=== PATIENT | male | born 1975 | race Caucasian/White ===

== ENCOUNTER 2021-10-14 23:53 | Emergency (ER) | payer OTHER ==
[~2021-10-14] VITALS: Ht 172.7 cm; Wt 100.0 kg
[2021-10-15 01:20] VITALS: BP 135/82
== END 2021-10-15 10:31 | disposition home or self-care (01) ==
LOC: ER 23:53 → EDBD 23:53 → ER 10-15 10:31
DX: G92.9 Unspecified toxic encephalopathy (principal); F10.129 Alcohol abuse with intoxication, unspecified; Y90.9 Presence of alcohol in blood, level not specified; G82.20 Paraplegia, unspecified; Z93.3 Colostomy status
CPT/HCPCS: 99283; Z7610

== ENCOUNTER 2022-01-03 18:39 | Emergency (ER) | payer MEDICAID ==
[~2022-01-03] VITALS: Ht 167.6 cm; Wt 77.0 kg
[2022-01-03] MEDS ORDERED: MAGNESIUM/ALUMINUM HYDROXIDE/SIMETHICONE 30ML UDC PO STA (18:52)
[2022-01-03] MEDS ORDERED: ONDANSETRON HCL 4MG/2ML INJ IV STA (18:52)
[2022-01-03] MEDS ORDERED: VISCOUS LIDOCAINE 2% 15 ML UDC PO STA (18:52)
[2022-01-03] MEDS ORDERED: SODIUM CHLORIDE 0.9% 1,000 ML IV ONE (19:00)
[2022-01-03] MEDS ORDERED: PANTOPRAZOLE SODIUM 40 MG/VIAL IV ONE (19:00)
[2022-01-03 19:26] LABS: BASOPHILS % 0.2 % (0.0-2.0); EOSINOPHILS % 0.3 % (0.0-5.0); HEMATOCRIT. 42.2 % (42.0-52.0); HEMOGLOBIN. 13.7 g/dL (14.0-18.0); LYMPHOCYTES % 9.5 % (20.0-50.0); MEAN CORPUSCULAR HEMOGLOBIN 28.5 pg (28.0-32.0); MEAN CORPUSCULAR VOLUME 87.6 fL (80.0-94.0); MEAN PLATELET VOLUME 8.9 fl (7.4-10.4); PLATELET 185 x1000/uL (130-400); RED BLOOD CELL COUNT 4.81 mill/uL (4.7-6.1); RED CELL DISTRIBUTION WIDTH 15.3 % (11.6-14.6)
[2022-01-03 19:34] LABS: CHLORIDE 101 mEq/L (98-107)
[2022-01-03 19:40] LABS: ETHANOL BLOOD 146 mg/dL
[2022-01-03] MEDS ORDERED: ONDANSETRON HCL 4MG/2ML INJ IV NR (21:00)
[2022-01-03] MEDS ORDERED: MAGNESIUM/ALUMINUM HYDROXIDE/SIMETHICONE 30ML UDC PO NR (21:00)
[2022-01-03] MEDS ORDERED: PANTOPRAZOLE SODIUM 40 MG/VIAL IV NR (21:00)
[2022-01-03] MEDS ORDERED: VISCOUS LIDOCAINE 2% 15 ML UDC PO NR (21:00)
[2022-01-03] MEDS ORDERED: MORPHINE SULFATE 4 MG/ML CPJ (NOT FOR IM USE) IV ONE ×2 (22:00→23:00)
[2022-01-03] MEDS ORDERED: CEFTRIAXONE 1 G PREMIX 50 ML IV NR (23:00)
[2022-01-04] VITALS: BP 134/89
[2022-01-04] MEDS ORDERED: MORPHINE SULFATE 2 MG/ML CPJ (NOT FOR IM USE) IV ONE (00:39)
[2022-01-04] MEDS ORDERED: IOHEXOL-350 100 ML BOTTLE ONE (01:04)
== END 2022-01-04 02:16 | disposition short-term general hospital (02) ==
LOC: ER 18:39
DX: R07.89 Other chest pain (principal); K20.90 Esophagitis, unspecified without bleeding; K80.20 Calculus of gallbladder without cholecystitis without obstruction; R10.13 Epigastric pain; E87.1 Hypo-osmolality and hyponatremia; F10.229 Alcohol dependence with intoxication, unspecified; E11.9 Type 2 diabetes mellitus without complications; I10 Essential (primary) hypertension; G82.20 Paraplegia, unspecified; Y90.6 Blood alcohol level of 120-199 mg/100 ml; Z93.3 Colostomy status; Z74.01 Bed confinement status; Z20.822 Contact with and (suspected) exposure to COVID-19
CPT/HCPCS: 36415; 71045; 71250; 74176; 80053; 80320; 82962; 83690; 84484; 85025; 87426; 96361; 96374; 96375; 96376; 99285; C9113; C9803; J2270; J2405; J7030; Q9967; G0480

== ENCOUNTER 2022-01-21 19:32 | Emergency (ER) | payer MEDICAID ==
[~2022-01-21] VITALS: Ht 165.1 cm; Wt 100.0 kg
[2022-01-22 00:08] LABS: CHLORIDE 96 mEq/L (98-107)
[2022-01-22 00:11] LABS: BASOPHILS % 0.7 % (0.0-2.0); EOSINOPHILS % 4.5 % (0.0-5.0); HEMOGLOBIN. 13.7 g/dL (14.0-18.0); MEAN CORPUSCULAR HEMOGLOBIN 29.3 pg (28.0-32.0); MEAN CORPUSCULAR VOLUME 85.8 fL (80.0-94.0); MEAN PLATELET VOLUME 9.2 fl (7.4-10.4); MONOCYTES % 9.4 % (2.0-8.0); NEUTROPHILS % 65.4 % (40.0-76.0); PLATELET 167 x1000/uL (130-400); RED BLOOD CELL COUNT 4.67 mill/uL (4.7-6.1)
[2022-01-22 00:16] LABS: ETHANOL BLOOD < 10 mg/dL
[2022-01-22 00:51] LABS: CLARITY URINE CLOUDY (CLEAR); COLOR URINE YELLOW (YELLOW); KETONES URINE NEGATIVE (NEGATIVE); LEUKOCYTE ESTERASE URINE 2+ (NEGATIVE); NITRITE URINE POSITIVE (NEGATIVE); OCCULT BLOOD URINE TRACE (NEGATIVE); PH URINE 5.5 (4.5-8.0); PROTEIN URINE 1+ (NEGATIVE); SPECIFIC GRAVITY URINE 1.007 (1.005-1.030); UROBILINOGEN URINE 0.2 E.U./dL (0.2-1.0)
[2022-01-22 01:12] LABS: *AMPHETAMINES SCREEN URINE PRESUMTIVE POSITIVE (NEGATIVE); *BARBITURATES SCREEN URINE NEGATIVE (NEGATIVE); *BENZODIAZEPINES SCREEN URINE PRESUMTIVE POSITIVE (NEGATIVE); *COCAINE SCREEN URINE NEGATIVE (NEGATIVE); CANNABINOID URINE SCREEN NEGATIVE (NEGATIVE); METHADONE URINE SCREEN NEGATIVE (NEGATIVE); OPIATES URINE SCREEN NEGATIVE (NEGATIVE); PHENCYCLIDINE URINE SCREEN NEGATIVE (NEGATIVE)
[2022-01-22] MEDS ORDERED: BACL-141 MT (03:32)
[2022-01-22] MEDS ORDERED: GABA300C MT (03:32)
[2022-01-22] MEDS ORDERED: CEPH500T MT (03:32)
[2022-01-22 05:00] VITALS: BP 132/90
== END 2022-01-22 05:40 | disposition home or self-care (01) ==
LOC: ER 19:32
DX: R10.9 Unspecified abdominal pain (principal); R07.89 Other chest pain; F10.229 Alcohol dependence with intoxication, unspecified; E11.9 Type 2 diabetes mellitus without complications; I10 Essential (primary) hypertension; Z98.890 Other specified postprocedural states
CPT/HCPCS: 36415; 80053; 80305; 80320; 81003; 85025; 93005; 99284; G0480

== ENCOUNTER 2022-05-09 00:33 | Emergency (ER) | payer MEDICAID, OTHER ==
[~2022-05-09] VITALS: Ht 165.1 cm; Wt 99.0 kg
[~2022-05-09 00:33] MED LIST: BACL-141 MT; CEPH500T MT; GABA300C MT
[2022-05-09 00:40] VITALS: BP 185/104
[2022-05-09 09:59] LABS: BASOPHILS % 0.4 % (0.0-2.0); HEMOGLOBIN. 14.5 g/dL (14.0-18.0); LYMPHOCYTES % 13.1 % (20.0-50.0); MEAN CORPUSCULAR HEMOGLOBIN 30.2 pg (28.0-32.0); MEAN CORPUSCULAR VOLUME 87.8 fL (80.0-94.0); MONOCYTES % 4.1 % (2.0-8.0); NEUTROPHILS % 81.4 % (40.0-76.0); RED BLOOD CELL COUNT 4.78 mill/uL (4.7-6.1); RED CELL DISTRIBUTION WIDTH 14.6 % (11.6-14.6)
[2022-05-09 10:03] LABS: CHLORIDE 103 mEq/L (98-107)
[2022-05-09 11:06] LABS: PLATELET 124 x1000/uL (130-400)
[2022-05-09] MEDS ORDERED: CEPH500C2 MT (12:22)
[2022-05-09] MEDS ORDERED: GABA-532 MT (12:22)
[2022-05-09] MEDS ORDERED: BACL-141 MT (12:22)
== END 2022-05-09 14:59 | disposition home or self-care (01) ==
LOC: ER 00:33 → CANBEDREQ 16:32
DX: L89.159 Pressure ulcer of sacral region, unspecified stage (principal); E11.9 Type 2 diabetes mellitus without complications; E78.00 Pure hypercholesterolemia, unspecified; I10 Essential (primary) hypertension; Z79.899 Other long term (current) drug therapy
CPT/HCPCS: 36415; 80053; 85025; 99283

== ENCOUNTER 2022-07-26 19:16 | Emergency (ER) | payer OTHER ==
[~2022-07-26] VITALS: Ht 165.1 cm; Wt 87.0 kg
[~2022-07-26 19:16] MED LIST changes: +CEPH500C2 MT; +GABA-532 MT
[2022-07-27] MEDS ORDERED: ONDANSETRON HCL 4MG/2ML INJ IV ONE (06:00)
[2022-07-27] MEDS ORDERED: MORPHINE SULFATE 4 MG/ML CPJ (NOT FOR IM USE) IV ONE (06:00)
[2022-07-27] MEDS ORDERED: ASPIRIN 325MG EC TABLET PO ONE (06:00)
[2022-07-27 06:15] LABS: BASOPHILS % 0.8 % (0.0-2.0); HEMATOCRIT. 36.7 % (42.0-52.0); HEMOGLOBIN. 13.1 g/dL (14.0-18.0); LYMPHOCYTES % 29.5 % (20.0-50.0); MEAN CORPUSCULAR HEMOGLOBIN 32.7 pg (28.0-32.0); MEAN CORPUSCULAR VOLUME 91.4 fL (80.0-94.0); MEAN PLATELET VOLUME 9.4 fl (7.4-10.4); MONOCYTES % 7.9 % (2.0-8.0); NEUTROPHILS % 59.8 % (40.0-76.0); PLATELET 187 x1000/uL (130-400); RED BLOOD CELL COUNT 4.01 mill/uL (4.7-6.1); RED CELL DISTRIBUTION WIDTH 15.7 % (11.6-14.6)
[2022-07-27] MEDS ORDERED: SODIUM CHLORIDE 0.9% 1,000 ML IV ONE ×2 (06:15→09:00)
[2022-07-27 06:56] LABS: PROTHROMBIN TIME 10.6 sec (9.6-11.0)
[2022-07-27 06:57] LABS: CHLORIDE 104 mEq/L (98-107)
[2022-07-27 07:10] LABS: ETHANOL BLOOD 230 mg/dL
[2022-07-27] MEDS ORDERED: ASPI-1497 MT (10:55)
[2022-07-27] MEDS ORDERED: ONDA4TAB50 MT (10:55)
[2022-07-27 14:30] VITALS: BP 151/102
== END 2022-07-27 16:24 | disposition home or self-care (01) ==
LOC: ER 19:16
DX: R07.89 Other chest pain (principal); R10.33 Periumbilical pain; E11.65 Type 2 diabetes mellitus with hyperglycemia; I10 Essential (primary) hypertension; E78.00 Pure hypercholesterolemia, unspecified; F17.210 Nicotine dependence, cigarettes, uncomplicated; G82.20 Paraplegia, unspecified; Z87.828 Personal history of other (healed) physical injury and trauma; Z79.82 Long term (current) use of aspirin; Z93.3 Colostomy status
CPT/HCPCS: 36415; 71045; 74176; 80053; 80320; 82962; 83690; 83880; 84484; 85025; 85610; 86850; 86900; 86901; 93005; 96361; 96374; 96375; 99285; J2270; J2405; J7030; G0480

== ENCOUNTER 2022-07-31 04:19 | Emergency (ER) | payer MEDICAID, OTHER ==
[~2022-07-31] VITALS: Ht 165.1 cm; Wt 87.0 kg
[~2022-07-31 04:19] MED LIST changes: +ASPI-1497 MT; +ONDA4TAB50 MT
[2022-07-31] MEDS ORDERED: PANTOPRAZOLE SODIUM 40 MG/VIAL IV STA (08:41)
[2022-07-31] MEDS ORDERED: SODIUM CHLORIDE 0.9% 1000ML BAG (SEPSIS BOLUS) IV ONE (08:45)
[2022-07-31 09:18] LABS: CLARITY URINE CLOUDY (CLEAR); COLOR URINE YELLOW (YELLOW); KETONES URINE NEGATIVE (NEGATIVE); LEUKOCYTE ESTERASE URINE TRACE (NEGATIVE); NITRITE URINE NEGATIVE (NEGATIVE); OCCULT BLOOD URINE 1+ (NEGATIVE); PH URINE 5.5 (4.5-8.0); PROTEIN URINE 3+ (NEGATIVE); SPECIFIC GRAVITY URINE 1.013 (1.005-1.030); UROBILINOGEN URINE 0.2 E.U./dL (0.2-1.0)
[2022-07-31] MEDS ORDERED: PIPERACILLIN/TAZ 3.375G PREMIX 50 ML IV NR (09:45)
[2022-07-31] MEDS ORDERED: VANCOMYCIN 1G PREMIX 200 ML IV ONE (10:00)
[2022-07-31] MEDS ORDERED: PANTOPRAZOLE SODIUM 40 MG/VIAL IV NR (10:00)
[2022-07-31 10:11] LABS: BASOPHILS % 0.7 % (0.0-2.0); EOSINOPHILS % 1.3 % (0.0-5.0); HEMOGLOBIN. 14.9 g/dL (14.0-18.0); LYMPHOCYTES % 14.6 % (20.0-50.0); MEAN CORPUSCULAR HEMOGLOBIN 32.5 pg (28.0-32.0); MEAN CORPUSCULAR VOLUME 91.3 fL (80.0-94.0); MEAN PLATELET VOLUME 8.7 fl (7.4-10.4); MONOCYTES % 3.3 % (2.0-8.0); NEUTROPHILS % 80.1 % (40.0-76.0); PLATELET 221 x1000/uL (130-400); RED CELL DISTRIBUTION WIDTH 15.5 % (11.6-14.6)
[2022-07-31 13:25] LABS: PROTHROMBIN TIME 10.7 sec (9.6-11.0)
[2022-07-31 13:30] LABS: CHLORIDE 99 mEq/L (98-107)
[2022-07-31 19:07] VITALS: BP 136/86
== END 2022-07-31 19:14 | disposition short-term general hospital (02) ==
LOC: ER 04:19 → EDBEDREQ 10:28 → EDBEDREQSVC 10:28 → ER 19:14
DX: A41.9 Sepsis, unspecified organism (principal); N39.0 Urinary tract infection, site not specified; L89.159 Pressure ulcer of sacral region, unspecified stage; E11.65 Type 2 diabetes mellitus with hyperglycemia; R00.0 Tachycardia, unspecified; L03.811 Cellulitis of head [any part, except face]; G82.20 Paraplegia, unspecified; I10 Essential (primary) hypertension; E78.00 Pure hypercholesterolemia, unspecified; Z79.4 Long term (current) use of insulin; Z93.3 Colostomy status; Z99.3 Dependence on wheelchair; Z79.82 Long term (current) use of aspirin; Z20.822 Contact with and (suspected) exposure to COVID-19
CPT/HCPCS: 36415; 71045; 80053; 80320; 81003; 83605; 83690; 84145; 85025; 85610; 87040; 87077; 87086; 87186; 87426; 93005; 96361; 96365; 96366; 96368; 96375; 99291; C9113; C9803; J2543; J3370; J7030; Z7610; A4315; G0480

== ENCOUNTER 2022-08-17 17:13 | Emergency (ER) | payer OTHER ==
[~2022-08-17] VITALS: Ht 172.7 cm; Wt 131.0 kg
[2022-08-17] MEDS ORDERED: ONDANSETRON HCL 4MG/2ML INJ IV STA (18:13)
[2022-08-17] MEDS ORDERED: PANTOPRAZOLE 80 MG in SODIUM CHLORIDE 0.9% 100 ML IV STA (18:13)
[2022-08-17] MEDS ORDERED: SODIUM CHLORIDE 0.9% 1,000 ML IV ONE ×2 (18:15→21:45)
[2022-08-17 18:38] LABS: BASOPHILS % 0.5 % (0.0-2.0); EOSINOPHILS % 0.3 % (0.0-5.0); HEMATOCRIT. 46.6 % (42.0-52.0); HEMOGLOBIN. 16.2 g/dL (14.0-18.0); LYMPHOCYTES % 7.3 % (20.0-50.0); MEAN CORPUSCULAR HEMOGLOBIN 31.9 pg (28.0-32.0); MEAN CORPUSCULAR VOLUME 92.1 fL (80.0-94.0); MEAN PLATELET VOLUME 9.5 fl (7.4-10.4); MONOCYTES % 5.3 % (2.0-8.0); NEUTROPHILS % 86.6 % (40.0-76.0); PLATELET 159 x1000/uL (130-400); RED BLOOD CELL COUNT 5.06 mill/uL (4.7-6.1); RED CELL DISTRIBUTION WIDTH 15.3 % (11.6-14.6)
[2022-08-17 18:44] LABS: CHLORIDE 104 mEq/L (98-107)
[2022-08-17 18:53] LABS: ETHANOL BLOOD < 10 mg/dL
[2022-08-17 18:59] LABS: PROTHROMBIN TIME 10.8 sec (9.6-11.0)
[2022-08-17] MEDS ORDERED: PANTOPRAZOLE 80 MG in SODIUM CHLORIDE 0.9% 100 ML IV SCH (20:00)
[2022-08-17] MEDS ORDERED: LORAZEPAM 2MG/ML CPJ IV ONE (21:45)
[2022-08-17] MEDS ORDERED: MORPHINE SULFATE 2 MG/ML CPJ (NOT FOR IM USE) IV ONE (21:45)
[2022-08-17 23:49] VITALS: BP 162/106
== END 2022-08-18 00:24 | disposition short-term general hospital (02) ==
LOC: ER 17:13
DX: K92.0 Hematemesis (principal); F10.239 Alcohol dependence with withdrawal, unspecified; Y90.9 Presence of alcohol in blood, level not specified; R00.0 Tachycardia, unspecified; E11.9 Type 2 diabetes mellitus without complications; I10 Essential (primary) hypertension; E78.00 Pure hypercholesterolemia, unspecified; Z93.3 Colostomy status; Z20.822 Contact with and (suspected) exposure to COVID-19
CPT/HCPCS: 36415; 71045; 80053; 80320; 82962; 83605; 83690; 85025; 85610; 86850; 86900; 86901; 87426; 93005; 96365; 96375; 99285; C9113; C9803; J2060; J2270; J2405; J7030; J7050; G0480

== ENCOUNTER 2022-11-25 21:08 | Inpatient (IN) | payer MEDICAID ==
[~2022-11-25] VITALS: Ht 175.3 cm; Wt 91.6 kg
[~2022-11-25 21:08] MED LIST changes: -GABA-532 MT
[2022-11-25 22:27] LABS: CLARITY URINE CLOUDY (CLEAR); COLOR URINE YELLOW (YELLOW); KETONES URINE NEGATIVE (NEGATIVE); LEUKOCYTE ESTERASE URINE 3+ (NEGATIVE); NITRITE URINE NEGATIVE (NEGATIVE); OCCULT BLOOD URINE 2+ (NEGATIVE); PROTEIN URINE 1+ (NEGATIVE); SPECIFIC GRAVITY URINE 1.004 (1.005-1.030); UROBILINOGEN URINE 0.2 E.U./dL (0.2-1.0)
[2022-11-25 23:00] LABS: CHLORIDE 102 mEq/L (98-107)
[2022-11-25 23:43] LABS: EOSINOPHILS % 2.5 % (0.0-5.0); HEMATOCRIT. 38.5 % (42.0-52.0); HEMOGLOBIN. 12.8 g/dL (14.0-18.0); LYMPHOCYTES % 28.7 % (20.0-50.0); MEAN CORPUSCULAR VOLUME 90.4 fL (80.0-94.0); MONOCYTES % 3.5 % (2.0-8.0); NEUTROPHILS % 64.3 % (40.0-76.0); PLATELET 264 x1000/uL (130-400); RED BLOOD CELL COUNT 4.26 mill/uL (4.7-6.1); RED CELL DISTRIBUTION WIDTH 15.1 % (11.6-14.6)
[2022-11-26] MEDS ORDERED: IPRATROPIUM/ALBUTEROL 0.5-3(2.5)MG/3ML NEB HHN PRN (08:00)
[2022-11-26] MEDS ORDERED: LORAZEPAM 0.5MG TABLET PO PRN (08:00)
[2022-11-26] MEDS ORDERED: VANCOMYCIN 1G PREMIX 200 ML IV SCH (08:00)
[2022-11-26] MEDS ORDERED: ACETAMINOPHEN 325MG TABLET PO PRN ×2 (08:00)
[2022-11-26] MEDS ORDERED: DEXTROSE 50% WATER 50ML SYRINGE IV PRN (08:00)
[2022-11-26] MEDS ORDERED: ONDANSETRON HCL 4MG/2ML INJ IV PRN (08:00)
[2022-11-26] MEDS ORDERED: DOCUSATE SODIUM 100MG CAPSULE PO PRN (08:00)
[2022-11-26] MEDS ORDERED: CLONIDINE 0.1MG TABLET PO PRN (08:00)
[2022-11-26] MEDS ORDERED: PIPERACILLIN/TAZ 3.375G PREMIX 50 ML IV NR (08:00)
[2022-11-26] MEDS ORDERED: GUAIFENESIN 200MG/10ML SUGAR FREE UDC PO PRN (08:00)
[2022-11-26] MEDS ORDERED: INSULIN LISPRO 100 UNITS/ML SUBCUT SCH (08:20)
[2022-11-26] MEDS ORDERED: BLOOD SUGAR DIAGNOSTIC STRIP TEST SCH (09:00)
[2022-11-26] MEDS ORDERED: ENOXAPARIN 30MG/0.3ML SYR SUBCUT SCH (09:00)
[2022-11-26] MEDS ORDERED: FAMOTIDINE 20MG TABLET PO SCH (09:00)
[2022-11-26] MEDS ORDERED: VANCOMYCIN 750MG PREMIX 150 ML IV SCH (10:00)
[2022-11-26 14:47] VITALS: BP 129/86
[2022-11-26] MEDS ORDERED: PIPERACILLIN/TAZOBACTAM 3.375G in DEXT 5% WATER 50ML IV SCH (16:00)
[2022-11-26] MEDS ORDERED: MEROPENEM 1,000 MG in SODIUM CHLORIDE 0.9% 100 ML IV SCH (16:00)
== END 2022-11-26 15:20 | disposition left against medical advice (07) | DRG 466 ==
LOC: ER 21:08 → 6WST 11-26 03:01 → 7EST 11-26 12:51
PROVIDERS: ADMIT Internal Medicine; ATTEND Internal Medicine
DX: T83.511A Infection and inflammatory reaction due to indwelling urethral catheter, initial encounter (principal); L89.319 Pressure ulcer of right buttock, unspecified stage; N12 Tubulo-interstitial nephritis, not specified as acute or chronic; E87.1 Hypo-osmolality and hyponatremia; N30.90 Cystitis, unspecified without hematuria; E11.9 Type 2 diabetes mellitus without complications; D64.9 Anemia, unspecified; I10 Essential (primary) hypertension; Z53.29 Procedure and treatment not carried out because of patient's decision for other reasons; N32.3 Diverticulum of bladder; Z59.00 Homelessness unspecified; Z99.3 Dependence on wheelchair; Z93.3 Colostomy status; Y84.8 Other medical procedures as the cause of abnormal reaction of the patient, or of later complication, without mention of misadventure at the time of the procedure; Y92.89 Other specified places as the place of occurrence of the external cause
CPT/HCPCS: 36415; 80053; 81003; 82962; 85025; 93005; 99285; J1650; J1815; J2185; J2543; J3370; J7050; J7060; A4315

== ENCOUNTER 2022-12-03 03:25 | Emergency (ER) | payer MEDICAID ==
[~2022-12-03] VITALS: Ht 165.1 cm; Wt 90.0 kg
[2022-12-03 03:45] VITALS: BP 113/56
== END 2022-12-03 10:09 | disposition left against medical advice (07) ==
LOC: ER 03:25
DX: Z53.21 Procedure and treatment not carried out due to patient leaving prior to being seen by health care provider (principal)
CPT/HCPCS: 99281

== ENCOUNTER 2024-01-06 22:55 | Emergency (ER) | payer MEDICAID, MEDICARE ==
[~2024-01-06] VITALS: Ht 165.1 cm; Wt 100.0 kg
[2024-01-06 23:16] VITALS: BP 138/76; PULSE 110; RESP 18; TEMP 99; O2SAT 100
[2024-01-07] MEDS ORDERED: SODIUM CHLORIDE 0.9% 1000ML BAG (SEPSIS BOLUS) IV ONE
[2024-01-07] MEDS ORDERED: PIPERACILLIN/TAZO 3.375G/50ML 50 ML IV ONE (00:15)
[2024-01-07] MEDS ORDERED: VANCOMYCIN 1G PREMIX 200 ML IV ONE (00:15)
[2024-01-07 00:31] LABS: BASOPHILS % 0.6 % (0.0-2.0); DIFFERENTIAL COMMENT 0; EOSINOPHILS % 0.4 % (0.0-5.0); HEMATOCRIT. 23.4 % (42.0-52.0); HEMOGLOBIN. 7.1 g/dL (14.0-18.0); LYMPHOCYTES % 7.3 % (20.0-50.0); MEAN CORPUSCULAR HEMOGLOBIN 24.3 pg (28.0-32.0); MEAN CORPUSCULAR HGB CONC 30.4 g/dL (31.0-37.0); MEAN PLATELET VOLUME 7.7 fl (7.4-10.4); MONOCYTES % 6.7 % (2.0-8.0); PLATELET 537 x1000/uL (130-400); RED BLOOD CELL COUNT 2.93 mill/uL (4.7-6.1); RED CELL DISTRIBUTION WIDTH 18.1 % (11.6-14.6); WHITE BLOOD COUNT 15.7 x1000/uL (4.5-11.0)
[2024-01-07 00:34] LABS: CHLORIDE 100 mEq/L (98-107); POTASSIUM 3.9 mEq/L (3.5-5.1); SODIUM 131 mEq/L (136-145)
[2024-01-07 00:35] LABS: CALCIUM 8.4 mg/dL (8.7-10.4); CARBON DIOXIDE 23 mEq/L (21-32)
[2024-01-07 00:40] LABS: GLUCOSE 162 mg/dL (70-105); UREA NITROGEN BLOOD 7 mg/dL (9-23)
[2024-01-07 01:24] LABS: CREATININE 0.7 mg/dL (0.6-1.3)
[2024-01-07 03:30] LABS: INR 1.1
[2024-01-10] MEDS ORDERED: FENTANYL CITRATE/PF 50MCG/ML 2ML VIAL ONE (12:48)
[2024-01-10] MEDS ORDERED: MIDAZOLAM HCL 2 MG/2 ML VIAL ONE (12:49)
[2024-01-10] MEDS ORDERED: ROCURONIUM BROMIDE 10MG/ML VIAL 5ML IV ONE (12:52)
[2024-01-10] MEDS ORDERED: CEFAZOLIN SODIUM 1000MG/VIAL ONE (13:22)
== END 2024-01-07 20:46 | disposition left against medical advice (07) ==
LOC: ER 22:55 → EDBEDREQ 01-07 02:52 → EDBEDREQTM 01-07 02:52 → CANBEDREQ 01-07 07:27 → ER 01-07 20:46
DX: A41.9 Sepsis, unspecified organism (principal); L89.154 Pressure ulcer of sacral region, stage 4; D64.9 Anemia, unspecified; E11.9 Type 2 diabetes mellitus without complications; I10 Essential (primary) hypertension
CPT/HCPCS: 99285; 80048; 83605; 85025; 85610; 87040; 36415; 84145; 71045; 93005; J7030; J3010